=== PATIENT | male | born 1975 | race Caucasian/White ===

== ENCOUNTER 2017-09-20 17:55 | Inpatient (IN) | payer BC ==
[~2017-09-20] VITALS: Ht 175.3 cm; Wt 101.3 kg
[2017-09-20 19:01] LABS: HEMATOCRIT 49.7 % (38.0-50.0); HEMOGLOBIN 17.7 G/DL (12.5-16.6); MCHC 35.6 G/DL (30.0-36.0); MCV 89.9 FL (86-99); PLATELET COUNT 239 K/uL (156-360); RBC DIS.WIDTH-CV 13.2 % (11.8-14.6); RBC DIS.WIDTH-SD 43.2 % (39-53); RED BLOOD COUNT 5.53 M/uL (4.00-5.50); WHITE BLOOD COUNT 11.8 K/uL (4.1-10.2)
[2017-09-20 19:10] LABS: CHLORIDE 99 mEq/L (99-109); POTASSIUM 3.8 mEq/L (3.7-5.4); SODIUM 137 mEq/L (136-147)
[2017-09-20 19:12] LABS: GLUCOSE 103 mg/dL (70-99)
[2017-09-20 19:15] LABS: SERUM ETHYL ALCOHOL 193 mg/dL
[2017-09-20 19:16] LABS: CREATININE 1.9 mg/dL (0.6-1.3); GFR ESTIMATE (CALCULATED) 41 mL/min/ (58.99-99999)
[2017-09-20 19:17] LABS: UREA NITROGEN (BUN) 19 mg/dL (9-23)
[2017-09-20] MEDS ORDERED: FLONASE16 G1 BOTH NARES (23:19)
[2017-09-20] MEDS ORDERED: BUPROPION HCL150 M2 PO (23:19)
[2017-09-20] MEDS ORDERED: ATIVAN1 MG PO (23:19)
[2017-09-20] MEDS ORDERED: LEXAPRO20 MG PO (23:20)
[2017-09-20] MEDS ORDERED: PEPCID20 MG PO (23:20)
[2017-09-20] MEDS ORDERED: LEXAPRO10 MG PO (23:20)
[2017-09-20] MEDS ORDERED: ZYRTEC10 M3 PO (23:21)
[2017-09-20] MEDS ORDERED: HYZAAR 100-11 TABLET PO (23:21)
[2017-09-20] MEDS ORDERED: BENZEDREX BOTH NARES (23:22)
[2017-09-20] MEDS ORDERED: NICOTINE LOZENGE4 MG BC (23:22)
[2017-09-20] MEDS ORDERED: ROLAIDS PO (23:24)
[2017-09-21 02:05] LABS: ALBUMIN 4.6 g/dL (3.2-4.8)
[2017-09-21 02:06] LABS: MAGNESIUM 2.1 mg/dL (1.3-2.7)
[2017-09-21 02:08] LABS: TOTAL PROTEIN 7.7 g/dL (6.4-8.3)
[2017-09-21 02:10] LABS: TOTAL BILIRUBIN 1.1 mg/dL (0.0-1.0)
[2017-09-21 02:11] LABS: ALKALINE PHOSPHATASE 97 IU/L (3-129)
[2017-09-21 02:13] LABS: AST (GOT) 102 IU/L (2-34)
[2017-09-21 02:14] LABS: ALT (GPT) 66 IU/L (3-49); DIRECT BILIRUBIN 0.5 mg/dL (0.0-0.3)
[2017-09-21 02:15] LABS: LIPASE 49 U/L (1.0-51.0)
[2017-09-21 07:41] LABS: HEMATOCRIT 43.5 % (38.0-50.0); HEMOGLOBIN 15.1 G/DL (12.5-16.6); MCH 31.9 PG (29.0-34.0); MCHC 34.7 G/DL (30.0-36.0); PLATELET COUNT 176 K/uL (156-360); RBC DIS.WIDTH-CV 13.2 % (11.8-14.6); RBC DIS.WIDTH-SD 45.1 % (39-53); RED BLOOD COUNT 4.73 M/uL (4.00-5.50); WHITE BLOOD COUNT 9.7 K/uL (4.1-10.2)
[2017-09-21 07:50] LABS: CHLORIDE 105 mEq/L (99-109); POTASSIUM 3.7 mEq/L (3.7-5.4); SODIUM 139 mEq/L (136-147)
[2017-09-21 07:51] LABS: GLUCOSE 97 mg/dL (70-99)
[2017-09-21 07:56] LABS: UREA NITROGEN (BUN) 17 mg/dL (9-23)
[2017-09-21 08:01] LABS: CREATININE 1.2 mg/dL (0.6-1.3); GFR ESTIMATE (CALCULATED) > 59 mL/min/ (58.99-99999)
[2017-09-21 11:03] LABS: APPEARANCE CLEAR ((CLEAR)); BILIRUBIN NEGATIVE; BLOOD NEGATIVE; COLOR YELLOW ((YELLOW)); GLUCOSE (STRIP) NEGATIVE; KETONES 20; LEUKOCYTES NEGATIVE; NITRITE NEGATIVE; PROTEIN (STRIP) NEGATIVE; SPECIFIC GRAVITY 1.018 (1.000-1.030); UROBILINOGEN 0.2 MG/DL (0.2-1.0)
[2017-09-21 11:11] LABS: AMPHETAMINE NEGATIVE (500 ng/mL); BARBITURATES NEGATIVE (200 ng/mL); BENZODIAZEPINES PRESUMPTIVE POSITIVE (150 ng/mL); BUPRENORPHINE NEGATIVE (10 ng/mL); COCAINE NEGATIVE (150 ng/mL); METHADONE NEGATIVE (200 ng/mL); METHAMPHETAMINE NEGATIVE (500 ng/mL); OPIATES (MORPHINE) NEGATIVE (100 ng/mL); OXYCODONE NEGATIVE (100 ng/mL); PHENCYCLIDINE NEGATIVE (25 ng/mL); PROPOXYPHENE NEGATIVE (300 ng/mL); THC CANNABINOIDS NEGATIVE (50 ng/mL); TRICYCLIC ANTIDEPRESSANTS NEGATIVE (300 ng/mL)
[2017-09-21 11:48] LABS: BENZODIAZEPINES, URINE SCREEN POSITIVE (200 ng/mL)
[2017-09-21 16:00] VITALS: BP 143/98
[2017-09-21 20:11] VITALS: BP 140/92
[2017-09-21 23:58] VITALS: BP 136/85
[2017-09-22 03:48] VITALS: BP 135/87
[2017-09-22 07:08] LABS: BASOPHIL (%) 0.8 % (0-1); BASOPHIL COUNT 0.1 K/uL (0-0.1); EOSINOPHIL COUNT 0.1 K/uL (0-0.3); HEMATOCRIT 42.6 % (38.0-50.0); HEMOGLOBIN 14.4 G/DL (12.5-16.6); IMMATURE GRANULOCYTE (%) 0.7 % (0.0-0.7); LYMPHOCYTE (%) 22.6 % (15-42); LYMPHOCYTE COUNT 1.4 K/uL (1.0-2.8); MCHC 33.8 G/DL (30.0-36.0); MCV 94.7 FL (86-99); MONOCYTE (%) 10.9 % (3-12); MONOCYTE COUNT 0.7 K/uL (0-0.8); NEUTROPHIL COUNT 3.9 K/uL (1.8-6.4); PLATELET COUNT 144 K/uL (156-360); RBC DIS.WIDTH-CV 13.3 % (11.8-14.6); RBC DIS.WIDTH-SD 46.2 % (39-53); WHITE BLOOD COUNT 6.1 K/uL (4.1-10.2)
[2017-09-22 07:12] LABS: CHLORIDE 106 MEQ/L (99-109); CREATININE 1.1 MG/DL (0.6-1.3); GFR ESTIMATE (CALCULATED) > 59 mL/min/ (58.99-99999); GLUCOSE 75 mg/dL (70-99); MAGNESIUM 2.3 mg/dl (1.3-2.7); POTASSIUM 3.9 MEQ/L (3.7-5.4); SODIUM 139 MEQ/L (136-147); UREA NITROGEN (BUN) 17 mg/dL (9-23)
[2017-09-22 07:32] VITALS: BP 157/88
[2017-09-22 11:58] VITALS: BP 135/87
[2017-09-22 12:46] LABS: ALBUMIN 4.2 g/dL (3.2-4.8)
[2017-09-22 12:50] LABS: TOTAL BILIRUBIN 1.1 mg/dL (0.0-1.0); TOTAL PROTEIN 6.5 g/dL (6.4-8.3)
[2017-09-22 12:51] LABS: ALKALINE PHOSPHATASE 83 IU/L (3-129)
[2017-09-22 12:54] LABS: ALT (GPT) 54 IU/L (3-49); AST (GOT) 69 IU/L (2-34); DIRECT BILIRUBIN 0.5 mg/dL (0.0-0.3)
[2017-09-22] MEDS ORDERED: LIBRIUM25 MG PO (15:03)
[2017-09-22 16:05] VITALS: BP 161/63
[2017-09-22 21:35] VITALS: BP 141/72
[2017-09-22 23:52] VITALS: BP 141/81
[2017-09-23 04:03] VITALS: BP 159/87
[2017-09-23 06:52] LABS: BASOPHIL (%) 0.3 % (0-1); EOSINOPHIL (%) 1.3 % (0-5); EOSINOPHIL COUNT 0.1 K/uL (0-0.3); HEMATOCRIT 42.9 % (38.0-50.0); HEMOGLOBIN 14.2 G/DL (12.5-16.6); IMMATURE GRANULOCYTE (%) 0.8 % (0.0-0.7); LYMPHOCYTE COUNT 1.2 K/uL (1.0-2.8); MCH 31.1 PG (29.0-34.0); MCHC 33.1 G/DL (30.0-36.0); MCV 94.1 FL (86-99); MONOCYTE (%) 7.7 % (3-12); MONOCYTE COUNT 0.7 K/uL (0-0.8); NEUTROPHIL (%) 75.9 % (45-76); NEUTROPHIL COUNT 6.6 K/uL (1.8-6.4); PLATELET COUNT 154 K/uL (156-360); RBC DIS.WIDTH-CV 13.4 % (11.8-14.6); RBC DIS.WIDTH-SD 45.9 % (39-53); RED BLOOD COUNT 4.56 M/uL (4.00-5.50); WHITE BLOOD COUNT 8.7 K/uL (4.1-10.2)
[2017-09-23 07:18] LABS: ALKALINE PHOSPHATASE 82 IU/L (3-129); ALT (GPT) 41 IU/L (3-49); AST (GOT) 47 IU/L (2-34); CHLORIDE 105 MEQ/L (99-109); GFR ESTIMATE (CALCULATED) > 59 mL/min/ (58.99-99999); MAGNESIUM 2.3 mg/dl (1.3-2.7); POTASSIUM 3.8 MEQ/L (3.7-5.4); SODIUM 137 MEQ/L (136-147); TOTAL BILIRUBIN 0.8 MG/DL (0.0-1.0); TOTAL PROTEIN 6.1 G/DL (6.4-8.3); UREA NITROGEN (BUN) 17 mg/dL (9-23)
[2017-09-23 07:23] LABS: GLUCOSE 113 mg/dL (70-99)
[2017-09-23 08:17] VITALS: BP 134/69
== END 2017-09-23 15:07 | disposition home or self-care (01) | DRG 897 ==
LOC: EME 17:55 → 5SOUTH 09-21 00:52 → EDOF 09-21 00:52 → ENRESERV 09-21 00:59 → 5SOUTH 09-21 15:55 → ENPENDDIS 09-23 → 5SOUTH 09-23 15:07
PROVIDERS: Hospitalist; Internal Medicine; Physician Assistant
DX: F10.239 Alcohol dependence with withdrawal, unspecified (principal); N17.9 Acute kidney failure, unspecified; I10 Essential (primary) hypertension; E86.0 Dehydration; D72.829 Elevated white blood cell count, unspecified; F41.8 Other specified anxiety disorders; K70.10 Alcoholic hepatitis without ascites; Z87.891 Personal history of nicotine dependence
CPT/HCPCS: 71046; 80048; 80053; 80076; 81003; 82948; 83690; 83735; 84999; 85025; 85027; 99281; 99285; G0480; J1644; J2060; J2405; J2765; J3411; J7030; S0028

== ENCOUNTER 2017-11-22 10:06 | Emergency (ER) | payer BC ==
[~2017-11-22] VITALS: Ht 175.3 cm; Wt 98.7 kg
[~2017-11-22 10:06] MED LIST: ATIVAN1 MG PO; BENZEDREX BOTH NARES; BUPROPION HCL150 M2 PO; FLONASE16 G1 BOTH NARES; HYZAAR 100-11 TABLET PO; LEXAPRO10 MG PO; LEXAPRO20 MG PO; LIBRIUM25 MG PO; NICOTINE LOZENGE4 MG BC; PEPCID20 MG PO; ROLAIDS PO; ZYRTEC10 M3 PO
[2017-11-22] MEDS ORDERED: ATARAX,VISTARIL25 MG PO (10:42)
[2017-11-22 11:00] VITALS: BP 147/97
[2017-11-22] MEDS ORDERED: B-1100 MG PO (18:45)
[2017-11-22] MEDS ORDERED: ZOFRAN ODT8 MG PO (18:45)
[2017-11-22] MEDS ORDERED: LIBRIUM25 MG PO (18:45)
== END 2017-11-22 11:15 | disposition home or self-care (01) ==
LOC: EME 10:06
DX: F10.10 Alcohol abuse, uncomplicated (principal); I10 Essential (primary) hypertension; F41.9 Anxiety disorder, unspecified; F32.9 Major depressive disorder, single episode, unspecified; F17.200 Nicotine dependence, unspecified, uncomplicated; Z88.0 Allergy status to penicillin
CPT/HCPCS: 99281; 99284; Q0177

== ENCOUNTER 2017-11-22 13:19 | Emergency (ER) | payer BC ==
[~2017-11-22] VITALS: Ht 175.3 cm; Wt 98.1 kg
[~2017-11-22 13:19] MED LIST changes: +ATARAX,VISTARIL25 MG PO
[2017-11-22 14:28] LABS: APPEARANCE CLEAR ((CLEAR)); BILIRUBIN NEGATIVE; BLOOD NEGATIVE; COLOR YELLOW ((YELLOW)); GLUCOSE (STRIP) NEGATIVE; KETONES 5; LEUKOCYTES NEGATIVE; NITRITE NEGATIVE; PROTEIN (STRIP) 30; SPECIFIC GRAVITY 1.023 (1.000-1.030); UROBILINOGEN 0.2 MG/DL (0.2-1.0)
[2017-11-22 14:32] LABS: HEMATOCRIT 51.2 % (38.0-50.0); HEMOGLOBIN 18.1 G/DL (12.5-16.6); MCHC 35.4 G/DL (30.0-36.0); MCV 87.7 FL (86-99); PLATELET COUNT 229 K/uL (156-360); RBC DIS.WIDTH-CV 13.2 % (11.8-14.6); RBC DIS.WIDTH-SD 42.2 % (39-53); RED BLOOD COUNT 5.84 M/uL (4.00-5.50); WHITE BLOOD COUNT 8.5 K/uL (4.1-10.2)
[2017-11-22 14:39] LABS: AMPHETAMINE NEGATIVE (500 ng/mL); BARBITURATES NEGATIVE (200 ng/mL); BENZODIAZEPINES NEGATIVE (150 ng/mL); BUPRENORPHINE NEGATIVE (10 ng/mL); COCAINE NEGATIVE (150 ng/mL); METHADONE NEGATIVE (200 ng/mL); METHAMPHETAMINE NEGATIVE (500 ng/mL); OPIATES (MORPHINE) NEGATIVE (100 ng/mL); OXYCODONE NEGATIVE (100 ng/mL); PHENCYCLIDINE NEGATIVE (25 ng/mL); PROPOXYPHENE NEGATIVE (300 ng/mL); THC CANNABINOIDS NEGATIVE (50 ng/mL); TRICYCLIC ANTIDEPRESSANTS NEGATIVE (300 ng/mL)
[2017-11-22 14:41] LABS: CHLORIDE 105 mEq/L (99-109); POTASSIUM 4.1 mEq/L (3.7-5.4); SODIUM 141 mEq/L (136-147)
[2017-11-22 14:43] LABS: GLUCOSE 96 mg/dL (70-99)
[2017-11-22 14:46] LABS: SERUM ETHYL ALCOHOL 165 mg/dL
[2017-11-22 14:47] LABS: GFR ESTIMATE (CALCULATED) > 59 mL/min/ (58.99-99999)
[2017-11-22 14:48] LABS: UREA NITROGEN (BUN) 20 mg/dL (9-23)
[2017-11-22] MEDS ORDERED: ZOFRAN ODT8 MG PO (18:45)
[2017-11-22] MEDS ORDERED: B-1100 MG PO (18:45)
[2017-11-22] MEDS ORDERED: LIBRIUM25 MG PO (18:45)
[2017-11-22 19:20] VITALS: BP 152/88
== END 2017-11-22 19:25 | disposition home or self-care (01) ==
LOC: EME 13:19
PROVIDERS: Physician Assistant
DX: F10.229 Alcohol dependence with intoxication, unspecified (principal); Y90.6 Blood alcohol level of 120-199 mg/100 ml; I10 Essential (primary) hypertension; F41.9 Anxiety disorder, unspecified; F32.9 Major depressive disorder, single episode, unspecified; F17.200 Nicotine dependence, unspecified, uncomplicated; Z88.0 Allergy status to penicillin
CPT/HCPCS: 80048; 81003; 85027; 99281; 99284; G0480

== ENCOUNTER 2018-02-07 11:25 | Observation (INO) | payer BC ==
[~2018-02-07] VITALS: Ht 175.3 cm; Wt 98.7 kg
[~2018-02-07 11:25] MED LIST changes: +B-1100 MG PO; +ZOFRAN ODT8 MG PO
[2018-02-07 12:44] LABS: HEMATOCRIT 51.4 % (38.0-50.0); MCH 30.4 PG (29.0-34.0); MCV 86.8 FL (86-99); PLATELET COUNT 224 K/uL (156-360); RBC DIS.WIDTH-CV 14.5 % (11.8-14.6); RBC DIS.WIDTH-SD 45.1 % (39-53); RED BLOOD COUNT 5.92 M/uL (4.00-5.50); WHITE BLOOD COUNT 11.6 K/uL (4.1-10.2)
[2018-02-07 13:10] LABS: ACETAMINOPHEN (TYLENOL) < 10 MCG/ML (10-30); CHLORIDE 99 MEQ/L (99-109); CREATININE 1.3 MG/DL (0.6-1.3); GFR ESTIMATE (CALCULATED) > 59 mL/min/ (58.99-99999); GLUCOSE 111 mg/dL (70-99); POTASSIUM 3.8 MEQ/L (3.7-5.4); SALICYLATE < 3.0 MG/DL (15-30); SERUM ETHYL ALCOHOL < 10 mg/dL; SODIUM 136 MEQ/L (136-147); UREA NITROGEN (BUN) 19 mg/dL (9-23)
[2018-02-07 14:00] LABS: APPEARANCE CLEAR ((CLEAR)); BILIRUBIN NEGATIVE; BLOOD NEGATIVE; COLOR YELLOW ((YELLOW)); GLUCOSE (STRIP) NEGATIVE; KETONES 20; LEUKOCYTES NEGATIVE; NITRITE NEGATIVE; PROTEIN (STRIP) 100; SPECIFIC GRAVITY 1.027 (1.000-1.030); UROBILINOGEN 0.2 MG/DL (0.2-1.0)
[2018-02-07 14:04] LABS: BACTERIA NONE SEEN /HPF; EPITHELIAL CELLS NONE SEEN /HPF; MUCUS 2+ /LPF; RED BLOOD CELLS 0-5 /HPF (0-5); UCUL ADDED? NO; WHITE BLOOD CELLS 0-5 /HPF (0-5)
[2018-02-07 14:13] LABS: COCAINE NEGATIVE (150 ng/mL); METHAMPHETAMINE NEGATIVE (500 ng/mL); OPIATES (MORPHINE) NEGATIVE (100 ng/mL); PHENCYCLIDINE NEGATIVE (25 ng/mL); THC CANNABINOIDS PRESUMPTIVE POSITIVE (50 ng/mL)
[2018-02-07 14:14] LABS: AMPHETAMINE NEGATIVE (500 ng/mL); BARBITURATES NEGATIVE (200 ng/mL); BENZODIAZEPINES PRESUMPTIVE POSITIVE (150 ng/mL); BUPRENORPHINE NEGATIVE (10 ng/mL); METHADONE NEGATIVE (200 ng/mL); OXYCODONE NEGATIVE (100 ng/mL); PROPOXYPHENE NEGATIVE (300 ng/mL); TRICYCLIC ANTIDEPRESSANTS NEGATIVE (300 ng/mL)
[2018-02-07 14:49] LABS: BENZODIAZEPINES, URINE SCREEN Negative (200 ng/mL)
[2018-02-07] MEDS ORDERED: WELLBUTRIN SR150 MG PO (14:53)
[2018-02-07] MEDS ORDERED: ATARAX,VISTARIL25 MG PO (14:55)
[2018-02-07] MEDS ORDERED: FLONASE16 G1 BOTH NARES (14:56)
[2018-02-07 16:40] VITALS: BP 151/95
[2018-02-07 19:00] VITALS: BP 128/71
[2018-02-08 03:59] VITALS: BP 140/84
[2018-02-08 05:48] LABS: CHLORIDE 106 MEQ/L (99-109); CREATININE 1.3 MG/DL (0.6-1.3); GFR ESTIMATE (CALCULATED) > 59 mL/min/ (58.99-99999); GLUCOSE 88 mg/dL (70-99); POTASSIUM 4.5 MEQ/L (3.7-5.4); SODIUM 141 MEQ/L (136-147); UREA NITROGEN (BUN) 18 mg/dL (9-23)
[2018-02-08 07:35] VITALS: BP 145/97
[2018-02-08 11:30] VITALS: BP 140/80
[2018-02-08] MEDS ORDERED: ZOFRAN4 MG PO (11:31)
[2018-02-08] MEDS ORDERED: CHLORDIAZEPOXID25 MG PO (13:16)
== END 2018-02-08 14:10 | disposition home or self-care (01) ==
LOC: EME 11:25 → EDOF 14:08 → 4SOUTH 14:08 → ENRESERV 14:10 → 4SOUTH 16:22 → ENPENDDIS 02-08 11:35 → 4SOUTH 02-08 14:10
PROVIDERS: Physician Assistant
DX: F10.239 Alcohol dependence with withdrawal, unspecified (principal); E86.0 Dehydration; I10 Essential (primary) hypertension
CPT/HCPCS: 80048; 81003; 83735; 84999; 85027; 93005; 99281; 99285; G0378; G0480; J1644; J3411; J3475; J7030; Q0177

== ENCOUNTER 2018-02-22 20:57 | Observation (INO) | payer BC ==
[~2018-02-22] VITALS: Ht 175.3 cm; Wt 102.2 kg
[~2018-02-22 20:57] MED LIST changes: +CHLORDIAZEPOXID25 MG PO; +ZOFRAN4 MG PO
[2018-02-23] MEDS ORDERED: LIBRIUM25 MG PO (00:01)
[2018-02-23] MEDS ORDERED: ZOFRAN4 MG PO ×2 (00:01→15:39)
[2018-02-23 04:52] LABS: CHLORIDE 104 mEq/L (99-109); POTASSIUM 4.2 mEq/L (3.7-5.4); SODIUM 141 mEq/L (136-147)
[2018-02-23 04:54] LABS: GLUCOSE 120 mg/dL (70-99)
[2018-02-23 04:57] LABS: SERUM ETHYL ALCOHOL 163 mg/dL
[2018-02-23 04:58] LABS: GFR ESTIMATE (CALCULATED) > 59 mL/min/ (58.99-99999)
[2018-02-23 04:59] LABS: UREA NITROGEN (BUN) 19 mg/dL (9-23)
[2018-02-23 05:05] LABS: BASOPHIL (%) 0.7 % (0-1); BASOPHIL COUNT 0.1 K/uL (0-0.1); EOSINOPHIL (%) 0.3 % (0-5); HEMATOCRIT 44.2 % (38.0-50.0); HEMOGLOBIN 14.9 G/DL (12.5-16.6); IMMATURE GRANULOCYTE (%) 1.3 % (0.0-0.7); LYMPHOCYTE (%) 31.5 % (15-42); LYMPHOCYTE COUNT 2.4 K/uL (1.0-2.8); MCH 29.9 PG (29.0-34.0); MCHC 33.7 G/DL (30.0-36.0); MCV 88.6 FL (86-99); MONOCYTE (%) 11.7 % (3-12); MONOCYTE COUNT 0.9 K/uL (0-0.8); NEUTROPHIL (%) 54.5 % (45-76); NEUTROPHIL COUNT 4.1 K/uL (1.8-6.4); PLATELET COUNT 200 K/uL (156-360); RBC DIS.WIDTH-CV 15.1 % (11.8-14.6); RBC DIS.WIDTH-SD 48.6 % (39-53); RED BLOOD COUNT 4.99 M/uL (4.00-5.50); WHITE BLOOD COUNT 7.5 K/uL (4.1-10.2)
[2018-02-23 06:56] LABS: MAGNESIUM 2.3 mg/dL (1.3-2.7)
[2018-02-23 08:00] VITALS: BP 138/85
[2018-02-23 11:41] VITALS: BP 162/82
[2018-02-23 15:26] VITALS: BP 159/103
[2018-02-23 19:21] VITALS: BP 142/91
[2018-02-24 00:25] VITALS: BP 137/87
[2018-02-24 03:20] VITALS: BP 142/88
[2018-02-24 05:10] LABS: HEMATOCRIT 43.6 % (38.0-50.0); HEMOGLOBIN 14.6 G/DL (12.5-16.6); MCH 29.7 PG (29.0-34.0); MCHC 33.5 G/DL (30.0-36.0); MCV 88.6 FL (86-99); PLATELET COUNT 158 K/uL (156-360); RBC DIS.WIDTH-CV 14.5 % (11.8-14.6); RBC DIS.WIDTH-SD 46.7 % (39-53); RED BLOOD COUNT 4.92 M/uL (4.00-5.50); WHITE BLOOD COUNT 7.4 K/uL (4.1-10.2)
[2018-02-24 05:34] LABS: CHLORIDE 105 MEQ/L (99-109); GFR ESTIMATE (CALCULATED) > 59 mL/min/ (58.99-99999); GLUCOSE 108 mg/dL (70-99); POTASSIUM 3.6 MEQ/L (3.7-5.4); SODIUM 140 MEQ/L (136-147); UREA NITROGEN (BUN) 14 mg/dL (9-23)
[2018-02-24 07:55] VITALS: BP 147/92
[2018-02-24] MEDS ORDERED: ZOFRAN4 MG PO (07:59)
[2018-02-24] MEDS ORDERED: LIBRIUM25 MG PO (07:59)
== END 2018-02-24 10:58 | disposition home or self-care (01) ==
LOC: EME 20:57 → EDOF 02-23 05:36 → 4SOUTH 02-23 05:36 → ENRESERV 02-23 05:43 → 4SOUTH 02-23 07:34 → ENPENDDIS 02-24 08:02 → 4SOUTH 02-24 10:58
PROVIDERS: Emergency Medicine; Internal Medicine
DX: F10.239 Alcohol dependence with withdrawal, unspecified (principal); F10.229 Alcohol dependence with intoxication, unspecified; Y90.6 Blood alcohol level of 120-199 mg/100 ml; R09.02 Hypoxemia; E86.0 Dehydration; R11.0 Nausea; J44.9 Chronic obstructive pulmonary disease, unspecified; I10 Essential (primary) hypertension; F32.9 Major depressive disorder, single episode, unspecified; F41.9 Anxiety disorder, unspecified; F19.11 Other psychoactive substance abuse, in remission; R00.0 Tachycardia, unspecified; K21.9 Gastro-esophageal reflux disease without esophagitis; R25.1 Tremor, unspecified; F17.200 Nicotine dependence, unspecified, uncomplicated; Z83.3 Family history of diabetes mellitus; Z81.1 Family history of alcohol abuse and dependence; Z82.0 Family history of epilepsy and other diseases of the nervous system; Z88.0 Allergy status to penicillin
CPT/HCPCS: 71046; 80048; 83735; 85025; 85027; 94799; 99202; 99281; 99285; G0378; G0480; J0456; J0696; J0780; J1644; J2060; J2405; J3411; J3475; J7030; S0028